=== PATIENT | male | born 1960 | race Caucasian/White ===

== ENCOUNTER 2017-09-17 08:18 | Emergency (ER) | payer OTHER ==
[~2017-09-17] VITALS: Ht 172.7 cm; Wt 79.4 kg
[~2017-09-17 08:18] MED LIST: CIPRO500 MG PO; KETO10TA2 PO
== END 2017-09-17 09:18 | disposition home or self-care (01) ==
LOC: ER 08:18
DX: S60.572A Other superficial bite of hand of left hand, initial encounter (principal); W54.0XXA Bitten by dog, initial encounter; Y93.89 Activity, other specified; Y92.89 Other specified places as the place of occurrence of the external cause; Y99.8 Other external cause status